=== PATIENT | female | born 1960 | race Caucasian/White ===

== ENCOUNTER 2023-03-24 15:24 | Emergency (ER) | payer OTHER, SELFPAY ==
[2023-03-24] VITALS (11 sets, daily range): BP systolic 145–193; BP diastolic 86–110; PULSE 73–98; RESP 15–25; TEMP 36.6–36.7; O2SAT 97–100
--- NOTE | 2023-03-24 17:03 | ECG_ITS ---
Measurements Intervals [place] Rate: 66 P: 64 MN: 141 QRS: 5 QRSD: 100 T: 46 QT: 373 QTc: 391 Interpretive Statements SINUS RHYTHM BASELINE ARTIFACT- I, III, AVL NORMAL ECG NO PREVIOUS ECG AVAILABLE FOR COMPARISON Electronically Signed On 03-24-2023 17:41:12 [employer]CH[employer]ICIAN by Den Radford D.O.
--- NOTE | 2023-03-24 17:03 | ED.RECABL ---
HPI - Recheck/Abnormal Lab/Rx General Chief Complaint: Recheck/Abnormal Lab/Rx Stated Complaint: irratic blood pressure Time Seen by Provider: 03/24/23 15:59 History of Present Illness HPI narrative: Patient is a 62-year-old female presenting with concerns for high blood pressure. States that she was actually started on blood pressure medications over the summer. She then had a hip surgery in November and her blood pressures had started to normalize so she stopped taking the antihypertensives. States that she developed cold-like symptoms last week and was seen in urgent care and diagnosed with a sinus infection. She was started on steroids and antibiotics and has been checking her blood pressure off and on. States that it has been high especially in the mornings. It is often in the 170 systolic. Denies chest pain, shortness of breath, vision or speech changes, numbness or weakness, leg swelling. States that she does often have to get up in the middle of the night to urinate. Related Data Allergies Allergy/AdvReac Type Severity Reaction Status Date / Time NKDA Allergy Mild Unknown Uncoded 03/24/23 16:12 Review of Systems Review of Systems: All systems reviewed & are unremarkable except as noted in HPI and below Exam Narrative: GENERAL: Well-appearing,in no acute distress, pleasant and cooperative HEAD: Normocephalic, atraumatic. EYES: PERRLA and EOMI. ENT: Mucous membranes moist. NECK: Supple. CHEST: Clear to auscultation. No respiratory distress. HEART: Regular rate and rhythm. No murmur heard ABDOMEN: Soft, nontender, nondistended EXTREMITIES: No edema. SKIN: Warm, dry, no rash. NEURO: No focal deficits. Alert and oriented x3. PSYCH: Normal mood and affect. Course Vital Signs Vital signs: Vital Signs Temperature 98.0 F 03/24/23 15:26 Pulse Rate 98 03/24/23 15:26 Respiratory Rate 16 03/24/23 15:26 Blood Pressure 176/110 H 03/24/23 15:26 Pulse Oximetry 100 03/24/23 15:26 Oxygen Delivery Room Air 03/24/23 15:26 Temperature 97.8 F 03/24/23 19:20 Pulse Rate 81 03/24/23 19:20 Respiratory Rate 19 03/24/23 19:20 Blood Pressure 145/90 H 03/24/23 19:20 Pulse Oximetry 99 03/24/23 19:20 Oxygen Delivery Room Air 03/24/23 15:26 MDM - Recheck/Abnormal Lab/Rx MDM Narrative Medical decision making narrative: 62-year-old female presenting with concerns for high blood pressure. Blood pressures here are in the 150s to 170s over 80s to 100s. Remainder of vitals are normal. She is asymptomatic. Will check some basic labs, EKG. Patient does have some amlodipine from her prior prescription. EKG per my interpretation shows normal sinus rhythm, no ST elevations or depressions. blood work is unremarkable. Normal renal function. Troponin is undetectable. UA without evidence of infection. Feel the Safe is safe for outpatient management. Advised that she restart her amlodipine and follow up closely with her PCP. Appropriate return precautions given. Discharged stable condition. Differential Diagnosis Differential diagnosis: Likely encounter for medication refill and other ( Asymptomatic hypertension) Medical Records Attestation: I reviewed the patient's medical records. Lab Data Attestation: I reviewed the patient's lab results. 03/24/23 17:13 03/24/23 17:13 Labs: Lab Results 03/24/23 03/24/23 Range/Units 17:13 19:45 WBC 9.7 (4.5-10.0) K/mm3 RBC 4.62 (4.2-5.4) M/mm3 Hgb 13.8 (12.0-15.0) g/dL Hct 42.7 (37.0-47.0) % MCV 92.4 (80-100) fl MCH 29.9 (26-34) pg MCHC 32.3 (32-36) g/dl RDW 13.2 (11.5-14.5) % Plt Count 430 H (150-375) k/mm3 MPV 8.8 (7.4-10.4) fl Immature Gran % (Auto) 0.2 (0-0.5) % Neut % (Auto) 50.2 (45.5-73.1) % Lymph % (Auto) 45.1 H (18.3-44.2) % [place] % (Auto) 4.0 (2.6-8.5) % Eos % (Auto) 0.2 (0-4.4) % Baso % (Auto) 0.3 (0.2-1.2) % Lymph # (Auto) 4.36 H
[2023-03-24 17:20] LABS: Basophils Percent Auto 0.3 % (0.2-1.2); Eosinophils Percent Auto 0.2 % (0-4.4); Hematocrit 42.7 % (37.0-47.0); Hemoglobin 13.8 g/dL (12.0-15.0); Immature Granulocyte Absolute 0.02 K/mm3 (0.00-0.031); Immature Granulocyte Percent A 0.2 % (0-0.5); Lymphocytes Absolute Auto 4.36 K/mm3 (0.9-3.2); Lymphocytes Percent Auto 45.1 % (18.3-44.2); Mean Corpuscular HGB Conc 32.3 g/dl (32-36); Mean Corpuscular Hemoglobin 29.9 pg (26-34); Mean Corpuscular Volume 92.4 fl (80-100); Mean Platelet Volume 8.8 fl (7.4-10.4); Monocytes Absolute Auto 0.4 K/mm3 (0.1-0.6); Neutrophils Absolute Auto 4.8 K/mm3 (1.3-6.7); Neutrophils Percent Auto 50.2 % (45.5-73.1); Platelet Count Result 430 k/mm3 (150-375); Red Blood Count 4.62 M/mm3 (4.2-5.4); Red Cell Distribution Width 13.2 % (11.5-14.5); White Blood Count 9.7 K/mm3 (4.5-10.0)
[2023-03-24 17:31] LABS: Anion Gap 8 mmol/L (8-16); Blood Urea Nitrogen 14 mg/dL (7-17); Calcium 9.5 mg/dL (8.4-10.2); Carbon Dioxide 28 mmol/L (22-30); Chloride 104 mmol/L (98-107); Estimated CRCL calculation 91 ml/min; Estimated Glomerular Filt Rate > 60; Glucose 93 mg/dL (65-110); Sodium 140 mmol/L (137-145)
[2023-03-24 17:43] LABS: Troponin I < 0.012 ng/mL (0.000-0.034)
[2023-03-24 20:17] LABS: Appearance Urine Clear (Clear); Bilirubin Urine Negative (Negative); Blood Urine Negative (Negative); Color Urine Yellow (Yellow); Glucose Urine UA Negative (Negative); Ketones Urine Negative (Negative); Leukocyte Esterase Ur Negative LEU/UL (Negative); Nitrate Urine Negative (Negative); Protein Urine Negative (Negative); Specific Grav Ur 1.007 (1.001-1.035); Urobilinogen Urine 0.2 mg/dL (<2.0); pH Urine 6.5 (5.0-9.0)
[2023-03-24 20:18] LABS: Add Urine Microscopic? NO
== END 2023-03-24 20:28 | disposition home or self-care (01) ==
PROVIDERS: Emergency Provider Emergency Medicine
DX: I10 Essential (primary) hypertension (principal)
CPT/HCPCS: 36415; 80048; 81003; 81025; 84484; 85025; 93005; 99284